=== PATIENT | female | born 1985 | race Caucasian/White ===

== ENCOUNTER 2023-06-09 16:17 | Emergency (ER) | payer OTHER, SELFPAY ==
[2023-06-09 16:36] VITALS: BP 131/84; PULSE 68; TEMP 36.5; O2SAT 100; BMI 29.4
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
== END 2023-06-09 17:09 | disposition home or self-care (01) ==
PROVIDERS: Emergency Provider Emergency Medicine
DX: S16.1XXA Strain of muscle, fascia and tendon at neck level, initial encounter (principal); V43.52XA Car driver injured in collision with other type car in traffic accident, initial encounter; Z79.899 Other long term (current) drug therapy
CPT/HCPCS: 99281